=== PATIENT | female | born 1970 | race Caucasian/White ===

== ENCOUNTER 2017-07-25 19:52 | Emergency (ER) | payer BC ==
[~2017-07-25] VITALS: Ht 160 cm; Wt 84.0 kg
[~2017-07-25 19:52] MED LIST: CLX20 PO; MRLP17 PO; MXLUNK; NORT25CA PO; estrogen
[2017-07-25 19:56] VITALS: BP 116/77; PULSE 115; TEMP 37.6; O2SAT 96; Ht 160 cm; Wt 84.0 kg
[2017-07-25] MEDS ORDERED: SODIUM CHLORIDE 0.9% 1000ML 1,000 ML IV STA (20:24)
[2017-07-25] MEDS ORDERED: ONDANSETRON INJ 2 MG/ML 2 ML VIAL IV STA (20:24)
[2017-07-25] MEDS ORDERED: RIZA10TA21 PO (20:31)
[2017-07-25] MEDS ORDERED: ZOLP5TAB6 PO (20:31)
[2017-07-25] MEDS ORDERED: OMEP20CA9 PO (20:31)
[2017-07-25] MEDS ORDERED: CLX/20 PO (20:31)
[2017-07-25] MEDS ORDERED: NRT/25 PO (20:31)
[2017-07-25] MEDS ORDERED: ALBUAER INH (20:31)
[2017-07-25 20:36] LABS: BASO % 0.2 %; BASO ABS # 0.04 K/uL (0-0.2); EOS ABS # 0.01 K/uL (0-0.5); HEMATOCRIT 40.9 % (37-47); HEMOGLOBIN 14.1 g/dL (12.0-16.0); IG# 0.12 K/uL (0.00-0.02); LYMPH % 9.6 %; LYMPH ABS # 2.04 K/uL (1.2-3.4); MEAN CELL VOLUME 90.7 fL (80-100); MEAN CORPUSCULAR HEMOGLOBIN 31.3 pg (25-34); MEAN CORPUSCULAR HGB CONC 34.5 g/dl (32-36); MEAN PLATELET VOLUME 9.1 fL (7.4-10.4); MONO % 6.6 %; NEUT ABS # 17.56 K/uL (1.4-6.5); PLATELET COUNT 262 K/uL (130-400); RED CELL DISTRIBUTION WIDTH SD 46.2 fL (36.4-46.3); WHITE BLOOD COUNT 21.17 K/uL (4.8-10.8)
--- NOTE | 2017-07-25 20:54 | DIAGNOSTIC IMAGING REPORT ---
ABDOMEN 2VIEW W/PA CHEST RTN CLINICAL HISTORY: eval for obstruction/pna pain COMPARISON STUDY: 06/11/2014 FINDINGS: The soft tissues, psoas shadows, renal outlines and intestinal gas pattern appear normal. There is no evidence for bowel obstruction. There is no evidence for free intraperitoneal air. No abnormal abdominal calcifications are seen. A frontal view of the chest was performed and is unremarkable. IMPRESSION: Normal study. The above report was generated using voice recognition software. It may contain grammatical, syntax or spelling errors. Electronically signed by: Ancelmo Hopson M.D. 07/25/2017 8:52 PM Dictated Date/Time: 07/25/2017 8:52 PM
[2017-07-25 20:56] LABS: ALBUMIN 3.5 gm/dl (3.4-5.0); CALCIUM 9.1 mg/dl (8.5-10.1); CREATININE 1.05 mg/dl (0.60-1.20); POTASSIUM 3.5 mmol/L (3.5-5.1)
[2017-07-25 20:59] LABS: TOTAL PROTEIN 8.6 gm/dl (6.4-8.2)
[2017-07-25] MEDS ORDERED: ONDA4TAB10 SL (21:59)
[2017-07-25] MEDS ORDERED: ONDANSETRON HOME PACK 4MG OD TAB PO ONE (22:00)
--- NOTE | 2017-07-25 23:43 | EMERGENCY ROOM VISIT NOTE ---
History Report prepared by Khoa: Luh King Under the Supervision of: Dr. Lalo Arriaga M.D. First contact with patient: 20:19 Chief Complaint: VOMITING Stated Complaint: THROWING UP Nursing Triage Summary: pt states emesis @ 0200 and continuous since. pt c/o sore glands and swollen throat w/ difficulty swallowing. History of Present Illness The patient is a 47 year old female who presents to the Emergency Room with complaints of constant vomiting beginning at 2 am, about 18 hours ago. The patient denies any abdominal pain, diarrhea, urinary symptoms, or headache. She reports some rib pain posteriorly which she states is from the vomiting. She denies any chest pain or shortness of breath. The patient's last bowel movement was yesterday. She reports its normal for her to not have a bowel movement daily. The patient states she has had a cough for the past two months. She denies any sick contact. The patient has a history of a hysterectomy. Source of History: patient Onset: 18 hours ago Position: other (generalized) Quality: other (vomiting) Timing: constant Associated Symptoms: + cough, + vomiting, + back pain, No headache, No abdominal pain, No diarrhea, No urinary symptoms Review of Systems See HPI for pertinent positives & negatives. A total of 10 systems reviewed and were otherwise negative. Past Medical & Surgical Medical Problems: (1) Esophageal Reflux (2) Hyperlipidemia Nec/Nos (3) Lumbago (4) Migraine Unspecified W/O Intractable Migraine Surgical Problems: (1) Prev Delivry W/ Or W/O Ment Antepart Cond Social History Problems: (1) Missed Family History Patient reports no known family medical history. Social History Smoking Status: Never Smoker Alcohol Use: none Marital Status: Housing Status: lives with family Occupation Status: employed Current/Historical Medications Scheduled Citalopram (Citalopram Hydrobromide), 20 MG PO HS Nortriptyline Hcl (Pamelor), 25 MG PO HS Omeprazole (Prilosec), 20 MG PO BID Ondasetron Odt (Zofran Odt), 4 MG SL Q6H Scheduled PRN Albuterol Sulfate (Proventil Hfa), 2 PUFFS INH UD PRN for SOB/Wheezing Rizatriptan Benzoate (Rizatriptan Benzoate), 10 MG PO UD PRN for Migraine Zolpidem Tartrate (Zolpidem Tartrate), 5 MG PO HS PRN for Sleep Allergies Coded Allergies: Citric Acid (Verified Allergy, Mild, FEVER BLISTERS, 10/14/11) Medroxyprogesterone (Verified Allergy, Unknown, HIVES, 08/28/16) Tetracycline (Verified Allergy, Unknown, 10/14/11) Physical Exam Vital Signs Date Time Temp Pulse Resp B/P (MAP) Pulse Ox O2 Delivery O2 Flow Rate FiO2 07/25/17 19:56 37.6 115 19 116/77 96 Room Air Physical Exam Constitutional: Vital signs reviewed. Eyes: Pupils are equal round reactive to light. Conjunctiva are noninjected. ENT: Pharynx is diffusely erythematous without exudate. Mucous membranes are dry. Neck supple without meningeal signs. Respiratory: Clear to auscultation bilaterally. Breath sounds are equal bilaterally. Cardiovascular: Regular rate and rhythm. No rubs or gallops. GI: Soft, nondistended and nontender. Bowel sounds are present. Musculoskeletal: No peripheral edema. No lower extremity tenderness. Integumentary: No cyanosis. Neurological: The patient is awake and alert. No focal deficits. Psychiatric: Normal affect. Medical Decision & Procedures ER Provider Diagnostic Interpretation: Radiology results as stated below per my review and the radiologist's interpretation: ABDOMEN 2VIEW W/PA CHEST RTN FINDINGS: The soft tissues, psoas shadows, renal outlines and intestinal gas pattern appear normal. There is no evidence for bowel obstruction. There is no evidence for free intraperitoneal air. No abnormal abdominal calcifications are seen. A frontal view of the chest was performed and is unremarkable. IMPRESSION: Normal study. The above report was generated using voice recognition software. It may contain grammatical, syntax or spelling errors. Electronically signed by: Ancelmo Hopson M.D. Laboratory Results 07/25/17 20:16 Red Blood Count 4.51, Mean Corpuscular Volume 90.7, Mean Corpuscular Hemoglobin 31.3, Mean Corpuscular Hemoglobin Concent 34.5, Mean Platelet Volume 9.1, Neutrophils (%) (Auto) 83.0, Lymphocytes (%) (Auto) 9.6, Monocytes (%) (Auto) 6.6, Eosinophils (%) (Auto) 0.0, Basophils (%) (Auto) 0.2, Neutrophils # (Auto) 17.56, Lymphocytes # (Auto) 2.04, Monocytes # (Auto) 1.40, Eosinophils # (Auto) 0.01, Basophils # (Auto) 0.04 07/25/17 20:16 Test 07/25/17 20:16 07/25/17 21:15 White Blood Count 21.17 K/uL (4.8-10.8) Red Blood Count 4.51 M/uL (4.2-5.4) Hemoglobin 14.1 g/dL (12.0-16.0) Hematocrit 40.9 % (37-47) Mean Corpuscular Volume 90.7 fL (80-100) Mean Corpuscular Hemoglobin 31.3 pg (25-34) Mean Corpuscular Hemoglobin Concent 34.5 g/dl (32-36) Platelet Count 262 K/uL (130-400) Mean Platelet Volume 9.1 fL (7.4-10.4) Neutrophils (%) (Auto) 83.0 % Lymphocytes (%) (Auto) 9.6 % Monocytes (%) (Auto) 6.6 % Eosinophils (%) (Auto) 0.0 % Basophils (%) (Auto) 0.2 % Neutrophils # (Auto) 17.56 K/uL (1.4-6.5) Lymphocytes # (Auto) 2.04 K/uL (1.2-3.4) Monocytes # (Auto) 1.40 K/uL (0.11-0.59) Eosinophils # (Auto) 0.01 K/uL (0-0.5) Basophils # (Auto) 0.04 K/uL (0-0.2) RDW Standard Deviation 46.2 fL (36.4-46.3) RDW Coefficient of Variation 14.0 % (11.5-14.5) Immature Granulocyte % (Auto) 0.6 % Immature Granulocyte # (Auto) 0.12 K/uL (0.00-0.02) Anion Gap 9.0 mmol/L (3-11) Est Creatinine Clear Calc Drug Dose 67.3 ml/min Estimated GFR () 72.7 Estimated GFR (Non- 62.8 BUN/Creatinine Ratio 11.3 (10-20) Calcium Level 9.1 mg/dl (8.5-10.1) Total Bilirubin 0.6 mg/dl (0.2-1) Direct Bilirubin 0.1 mg/dl (0-0.2) Aspartate Amino Transf (AST/SGOT) 12 U/L (15-37) Alanine Aminotransferase (ALT/SGPT) 22 U/L (12-78) Alkaline Phosphatase 125 U/L (45-117) Total Protein 8.6 gm/dl (6.4-8.2) Albumin 3.5 gm/dl (3.4-5.0) Lipase 73 U/L (73-393) Monoscreen NEG (NEG) Urine Color YELLOW Urine Appearance CLEAR (CLEAR) Urine pH 6.0 (4.5-7.5) Urine Specific [place] 1.008 (1.000-1.030) Urine Protein NEG (NEG) Urine Glucose (UA) NEG (NEG) Urine Ketones NEG (NEG) Urine Occult Blood NEG (NEG) Urine Nitrite NEG (NEG) Urine Bilirubin NEG (NEG) Urine Urobilinogen NEG (NEG) Urine Leukocyte Esterase TRACE (NEG) Urine WBC (Auto) 1-5 /hpf (0-5) Urine RBC (Auto) 0-4 /hpf (0-4) Urine Hyaline Casts (Auto) 0 /lpf (0-5) Urine Epithelial Cells (Auto) 10-20 /lpf (0-5) Urine Bacteria (Auto) 1+ (NEG) Laboratory results as reviewed by me. Medications Administered Medications (Trade) Dose Ordered Sig/Tata Route Start Time Stop Time Status Last Admin Dose Admin Sodium Chloride 1,000 ml @ 999 mls/hr Q1H1M STAT IV 07/25/17 20:24 07/25/17 21:24 DC 07/25/17 20:24 999 MLS/HR Ondansetron HCl (Zofran Inj) 4 mg NOW STAT IV 07/25/17 20:24 07/25/17 20:27 DC 07/25/17 20:30 4 MG Ondansetron HCl (ZOFRAN ODT 4MG Home Pack) 1 homepack UD ONCE PO 07/25/17 22:00 07/25/17 22:01 DC 07/25/17 22:08 1 HOMEPACK ED Course 2020: The patient was evaluated in room C11B. A complete history and physical exam was performed. 2023: Ordered Zofran Inj 4 mg IV, Sodium Chloride 1000 ml @ 999 mls/hr IV. 2102: On reassessment, the patient is no longer nauseous. 2148: The patient is feeling better. I discussed test results and reviewed return instructions with the patient. The patient was able to drink without difficulty. 2199: Ordered Ondansetron HCl 1 homepack PO. 2204: Upon reevaluation, the patient appeared to have improvement of her symptoms. I discussed tonight's findings with the patient. She verbalized agreement of the treatment plan. The patient was discharged home. Medical Decision This is a 47-year-old female presents with vomiting, cough and rib pain. Differential diagnosis includes gastritis, foodborne illness, dehydration, electrolyte abnormality, obstruction, pneumonia. I did perform a limited focused review of portions of the patient's old chart on the electronic medical record. The patient has had no recent pertinent visits to this hospital. I did evaluate the patient as noted above. IV access was established. The patient was placed on a continuous quality assurance monitor body. I did order and personally review the patient's abdominal and chest x-ray as described above. I did order and review the patient's blood work as noted in the electronic medical record. Her white count is significantly elevated but this makes be simply due to her frequent vomiting since 2 AM this morning. I did treat patient with normal saline IV. She was given Zofran IV. Rapid strep testing was negative. Monospot was also negative. On reassessment she is feeling better. She is able to drink fluids. I did discuss the test results with her. I did discuss the elevated white blood cell count with her. She is feeling better at this time and has no pain anywhere other than some minor rib pain from all the retching that she has been doing. She was therefore discharged with a prescription for Zofran and I did discuss return instructions with her as well as the need for close follow up. Medication Reconcilliation Current Medication List: was personally reviewed by me Blood Pressure Screening Patient's blood pressure: Normal blood pressure Impression Primary Impression: Vomiting Additional Impressions: Leukocytosis Sore throat Scribe Attestation The scribe's documentation has been prepared under my direct and personally reviewed by me in its entirety. I confirm that the note above accurately reflects all work, treatment, procedures, and medical decision making performed by me. Departure Information Dispostion Home / Self-Care Prescriptions Ondasetron Odt (ZOFRAN ODT) 4 Mg Tab 4 MG SL Q6H for Nausea, #6 TAB Prov: Lalo Arriaga M.D. 07/25/17 Referrals Bernabe Beltran M.D. (PCP) Forms HOME CARE DOCUMENTATION FORM, IMPORTANT VISIT INFORMATION Patient Instructions ED Nausea Vomiting, My [facility] Additional Instructions You have been examined and treated today on an emergency basis only. This is not a substitute for, or an effort to provide, complete comprehensive medical care. It is impossible to recognize and treat all injuries or illnesses in a single emergency department visit. It is therefore important that you follow up closely with your physician. Call as soon as possible for an appointment. Return for worsening symptoms or if you develop fever, abdominal pain, headache , or any other concerning symptoms. Problem Qualifiers Primary Impression: Vomiting Vomiting type: unspecified Vomiting Intractability: non-intractable Nausea presence: with nausea Qualified Codes: R11.2 - Nausea with vomiting, unspecified Additional Impressions: Leukocytosis Leukocytosis type: unspecified Qualified Codes: D72.829 - Elevated white blood cell count, unspecified
== END 2017-07-25 22:16 | disposition home or self-care (01) ==
LOC: C.EDB 19:53 → C.EDC 22:16
DX: R11.2 Nausea with vomiting, unspecified (principal); D72.829 Elevated white blood cell count, unspecified; J02.9 Acute pharyngitis, unspecified; K21.9 Gastro-esophageal reflux disease without esophagitis; E78.5 Hyperlipidemia, unspecified; M54.5 Low back pain; G43.909 Migraine, unspecified, not intractable, without status migrainosus; Z79.899 Other long term (current) drug therapy

== ENCOUNTER 2017-08-06 07:21 | Observation (INO) | payer BC, OTHER ==
[~2017-08-06] VITALS: Ht 160 cm; Wt 84.0 kg
[~2017-08-06 07:21] MED LIST changes: +ALBUAER INH; +CLX/20 PO; -CLX20 PO; -MRLP17 PO; -MXLUNK; -NORT25CA PO; +NRT/25 PO; +OMEP20CA9 PO; +ONDA4TAB10 SL; +RIZA10TA21 PO; +ZOLP5TAB6 PO; -estrogen
[2017-08-06] MEDS ORDERED: ONDANSETRON INJ 2 MG/ML 2 ML VIAL IV STA (07:29)
[2017-08-06] MEDS ORDERED: SODIUM CHLORIDE 0.9% 1000ML 1,000 ML IV STA (07:29)
[2017-08-06 07:59] LABS: HEMATOCRIT 37.9 % (37-47); HEMOGLOBIN 13.2 g/dL (12.0-16.0); MEAN CELL VOLUME 89.8 fL (80-100); MEAN CORPUSCULAR HEMOGLOBIN 31.3 pg (25-34); MEAN CORPUSCULAR HGB CONC 34.8 g/dl (32-36); MEAN PLATELET VOLUME 8.8 fL (7.4-10.4); PLATELET COUNT 301 K/uL (130-400); RED CELL DISTRIBUTION WIDTH CV 13.6 % (11.5-14.5); RED CELL DISTRIBUTION WIDTH SD 44.9 fL (36.4-46.3)
[2017-08-06 08:16] LABS: ALBUMIN 3.3 gm/dl (3.4-5.0); BLOOD UREA NITROGEN 19 mg/dl (7-18); CALCIUM 8.8 mg/dl (8.5-10.1); CARBON DIOXIDE 19 mmol/L (21-32); CREATININE 1.04 mg/dl (0.60-1.20); GLUCOSE 152 mg/dl (70-99); LIPASE 67 U/L (73-393); POTASSIUM 3.4 mmol/L (3.5-5.1); SODIUM 138 mmol/L (136-145)
[2017-08-06 08:19] LABS: ALKALINE PHOSPHATASE 110 U/L (45-117); ALT/SGPT 25 U/L (12-78); AST/SGOT 16 U/L (15-37); TOTAL PROTEIN 8.2 gm/dl (6.4-8.2)
[2017-08-06 08:22] LABS: BASO % 0.1 %; BASO ABS # 0.03 K/uL (0-0.2); IG# 0.09 K/uL (0.00-0.02); LYMPH ABS # 1.05 K/uL (1.2-3.4); MONO % 3.8 %; NEUT % 90.7 %; NEUT ABS # 19.23 K/uL (1.4-6.5)
--- NOTE | 2017-08-06 08:35 | EMERGENCY ROOM VISIT NOTE ---
History First contact with patient: 07:26 Chief Complaint: VOMITING Stated Complaint: THROWING UP ALL NIGHT Nursing Triage Summary: n/v since 9 pm last night with diarrhea abd pain last night but not now just recently finished ABX for strep History of Present Illness The patient is a 47 year old female who presents to the Emergency Room with complaints of nausea vomiting and diarrhea that started at 9 PM last night. The patient states she has not been able to keep anything down. The patient states she had a little abdominal pain last light but that has resolved. The patient states that she just finished antibiotics for strep throat yesterday. The patient denies any sore throat or any upper respiratory symptoms. The patient denies any chest pain or shortness of breath. Patient denies any urinary symptoms. She admits she tried Zofran tablets that she had at home from similar episode last month without any results. Review of Systems 10 system review was performed and was negative unless stated otherwise history of present illness. Past Medical/Surgical History Medical Problems: (1) Esophageal Reflux (2) Hyperlipidemia Nec/Nos (3) Lumbago (4) Migraine Unspecified W/O Intractable Migraine Surgical Problems: (1) Prev Delivry W/ Or W/O Ment Antepart Cond Social History Problems: (1) Missed Family History Patient reports no known family medical history. Social History Smoking Status: Never Smoker Alcohol Use: none Marital Status: Housing Status: lives with family Occupation Status: employed Current/Historical Medications Scheduled Citalopram (Citalopram Hydrobromide), 20 MG PO HS Nortriptyline Hcl (Pamelor), 25 MG PO HS Omeprazole (Prilosec), 20 MG PO BID Ondasetron Odt (Zofran Odt), 4 MG SL Q6H Scheduled PRN Albuterol Sulfate (Proventil Hfa), 2 PUFFS INH UD PRN for SOB/Wheezing Rizatriptan Benzoate (Rizatriptan Benzoate), 10 MG PO UD PRN for Migraine Zolpidem Tartrate (Zolpidem Tartrate), 5 MG PO HS PRN for Sleep Physical Exam Vital Signs Date Time Temp Pulse Resp B/P (MAP) Pulse Ox O2 Delivery O2 Flow Rate FiO2 08/06/17 09:02 36.6 94 18 118/71 96 08/06/17 07:25 36.6 101 16 148/73 97 Physical Exam GENERAL: 47-year-old white female appears in no acute distress. MENTAL Status: Alert and oriented 3. MOUTH: Mucosa is slightly dry. NECK: Supple, no lymphadenopathy noted. No carotid bruits noted. LUNGS: Clear auscultation without wheezes rales or rhonchi. CARDIAC: Regular rate and rhythm without murmur. Pulses is full and equal throughout. BACK: No CVA tenderness noted. ABDOMEN: Positive bowel sounds all 4 quadrants. Soft, nontender to palpation without organomegaly or masses. EXTREMITIES: No cyanosis or edema noted. Medical Decision & Procedures Laboratory Results 08/06/17 07:45 Red Blood Count 4.22, Mean Corpuscular Volume 89.8, Mean Corpuscular Hemoglobin 31.3, Mean Corpuscular Hemoglobin Concent 34.8, Mean Platelet Volume 8.8, Neutrophils (%) (Auto) 90.7, Lymphocytes (%) (Auto) 5.0, Monocytes (%) (Auto) 3.8, Eosinophils (%) (Auto) 0.0, Basophils (%) (Auto) 0.1, Neutrophils # (Auto) 19.23, Lymphocytes # (Auto) 1.05, Monocytes # (Auto) 0.80, Eosinophils # (Auto) 0.00, Basophils # (Auto) 0.03 08/06/17 07:45 Test 08/06/17 07:45 White Blood Count 21.20 K/uL (4.8-10.8) Red Blood Count 4.22 M/uL (4.2-5.4) Hemoglobin 13.2 g/dL (12.0-16.0) Hematocrit 37.9 % (37-47) Mean Corpuscular Volume 89.8 fL (80-100) Mean Corpuscular Hemoglobin 31.3 pg (25-34) Mean Corpuscular Hemoglobin Concent 34.8 g/dl (32-36) Platelet Count 301 K/uL (130-400) Mean Platelet Volume 8.8 fL (7.4-10.4) Neutrophils (%) (Auto) 90.7 % Lymphocytes (%) (Auto) 5.0 % Monocytes (%) (Auto) 3.8 % Eosinophils (%) (Auto) 0.0 % Basophils (%) (Auto) 0.1 % Neutrophils # (Auto) 19.23 K/uL (1.4-6.5) Lymphocytes # (Auto) 1.05 K/uL (1.2-3.4) Monocytes # (Auto) 0.80 K/uL (0.11-0.59) Eosinophils # (Auto) 0.00 K/uL (0-0.5) Basophils # (Auto) 0.03 K/uL (0-0.2) RDW Standard Deviation 44.9 fL (36.4-46.3) RDW Coefficient of Variation 13.6 % (11.5-14.5) Immature Granulocyte % (Auto) 0.4 % Immature Granulocyte # (Auto) 0.09 K/uL (0.00-0.02) Anion Gap 12.0 mmol/L (3-11) Est Creatinine Clear Calc Drug Dose 67.9 ml/min Estimated GFR () 73.6 Estimated GFR (Non- 63.5 BUN/Creatinine Ratio 17.9 (10-20) Calcium Level 8.8 mg/dl (8.5-10.1) Total Bilirubin 0.3 mg/dl (0.2-1) Direct Bilirubin < 0.1 mg/dl (0-0.2) Aspartate Amino Transf (AST/SGOT) 16 U/L (15-37) Alanine Aminotransferase (ALT/SGPT) 25 U/L (12-78) Alkaline Phosphatase 110 U/L (45-117) Total Protein 8.2 gm/dl (6.4-8.2) Albumin 3.3 gm/dl (3.4-5.0) Lipase 67 U/L (73-393) Medications Administered Medications (Trade) Dose Ordered Sig/Tata Route Start Time Stop Time Status Last Admin Dose Admin Sodium Chloride 1,000 ml @ 999 mls/hr Q1H1M STAT IV 08/06/17 07:29 08/06/17 08:29 DC 08/06/17 07:49 999 MLS/HR Ondansetron HCl (Zofran Inj) 4 mg NOW STAT IV 08/06/17 07:29 08/06/17 07:31 DC 08/06/17 07:49 4 MG Ondansetron HCl (Zofran Odt) 4 mg ONE ONCE PO 08/06/17 10:00 08/06/17 10:01 DC 1/12/18 10:00 4 MG ED Course The patient was evaluated. The patient's EMR medication list were reviewed. IV access was obtained. The patient was given 1 L normal saline wide-open. She is also given Zofran 4 mg IV push for nausea. CBC and differential, renal profile, LFTs and lipase levels were ordered. Labs were reviewed. White count was elevated at 21,000 otherwise labs are unremarkable. When the patient was here with similar symptoms in June her white count was similar. The patient was reevaluated on several occasions and was feeling much better. She was then given crackers and irving twin and was able to keep both of them down without any difficulty. The patient's case was discussed with Dr. Owen who agreed with treatment plan. The patient was put up for discharge. The patient wanted to go into the bathroom before she left. When she went to urinate she started feeling nauseous again and had diarrhea and vomiting once again. She was given Zofran and still was unable to control her vomiting. Hospitalist was consulted for admission. Medical Decision Differential diagnosis include small bowel obstruction, gastroenteritis, [place] Drug Monitoring Program Search Results: patient reviewed within database Medication Reconcilliation Current Medication List: was personally reviewed by me Blood Pressure Screening Patient's blood pressure: Elevated blood pressure Blood pressure disposition: Elevated BP felt to be situational Impression Primary Impression: Intractable vomiting with nausea Departure Information Dispostion Being Evaluated By Hospitalist Condition GOOD Referrals Bernabe Beltran M.D. (PCP) Forms HOME CARE DOCUMENTATION FORM, IMPORTANT VISIT INFORMATION Patient Instructions ED Diet Brooks, ED Nausea Vomiting, [facility] Problem Qualifiers Primary Impression: Intractable vomiting with nausea Vomiting type: unspecified Qualified Codes: R11.2 - Nausea with vomiting, unspecified
[2017-08-06] MEDS ORDERED: ONDANSETRON 4MG OD TAB PO ONE (10:00)
[2017-08-06] MEDS ORDERED: ZOLPIDEM TARTRATE 5 MG TAB PO PRN (12:00)
[2017-08-06] MEDS ORDERED: MAGNESIUM HYDROXIDE SUSP 30 ML UDC PO PRN (12:00)
[2017-08-06] MEDS ORDERED: ALBUTEROL HFA 8 GM INHALER INH PRN (12:00)
[2017-08-06] MEDS ORDERED: ONDANSETRON INJ 2 MG/ML 2 ML VIAL IV PRN (12:00)
[2017-08-06] MEDS ORDERED: RIZATRIPTAN BENZOATE 10 MG TAB PO PRN (12:00)
--- NOTE | 2017-08-06 12:09 | History and Physical ---
History & Physical Date & Time of Service: Aug 06, 2017 at 11:58 Chief Complaint: Throwing Up All Night Primary Care Physician: Bernabe Beltran M.D. History of Present Illness Source: patient 47 y/o F c/o n/v/d. Pt was seen in the ED on 07/25/17 for n/v. She had a rapid strep that was neg, however pt was notified on 07/27 that her cx was +. She was started on amoxicillin at that time. She has felt improved overall and had been eating and drinking without issue. She felt constipated last night and asked her to go the store to buy her a fleets enema. She took this around 9pm. Shortly after, pt started to have n/v. She then started to have diarrhea around 3am. She continued to have n/v/d so she came the the ED. She was given zofran and IVF and was doing well. She was set for d/c home at that time. She ambulated to the bathroom to urinate and had a sudden return of n/v/ d and has now had continued nausea. She does not feel well enough to go home as she cannot keep anything down. She has not had fever or abd pain. Pt denies SOB, chest pain, LE pain or swelling, urinary sx. Her contracted strep, but no one else at home is sick. No unusual foods or travel. Pt does state that her usual bowel pattern is 3 days between bowel movements. Past Medical/Surgical History GERD Migraines Depression Insomnia Family History Family history was reviewed; no changes noted. Social History Smoking Status: Never Smoker Alcohol Use: none Drug Use: none Marital Status: Occupational Status: employed Immunizations History of Influenza Vaccine: No History of Tetanus Vaccine?: No History of Pneumococcal: No History of Hepatitis B Vaccine: 2002 Multi-Drug Resistant Organisms History of MDRO: No Allergies Coded Allergies: Citric Acid (Verified Allergy, Mild, FEVER BLISTERS, 08/06/17) Medroxyprogesterone (Verified Allergy, Unknown, HIVES, 08/06/17) Tetracycline (Verified Allergy, Unknown, 08/06/17) Home Medications Scheduled Citalopram (Citalopram Hydrobromide), 20 MG PO HS Nortriptyline Hcl (Pamelor), 25 MG PO HS Omeprazole (Prilosec), 20 MG PO BID Ondasetron Odt (Zofran Odt), 4 MG SL Q6H Scheduled PRN Albuterol Sulfate (Proventil Hfa), 2 PUFFS INH UD PRN for SOB/Wheezing Rizatriptan Benzoate (Rizatriptan Benzoate), 10 MG PO UD PRN for Migraine Zolpidem Tartrate (Zolpidem Tartrate), 5 MG PO HS PRN for Sleep Review of Systems Pertinent positives and negatives reviewed in HPI--all others negative Physical Exam Vital Signs Date Time Temp Pulse Resp B/P (MAP) Pulse Ox O2 Delivery O2 Flow Rate FiO2 08/06/17 11:27 84 20 142/81 97 Room Air 08/06/17 09:02 36.6 94 18 118/71 96 08/06/17 07:25 36.6 101 16 148/73 97 General Appearance: no apparent distress (ill appearing), + obese Head: normocephalic, atraumatic Eyes: normal inspection, EOMI, sclerae normal Respiratory/Chest: normal breath sounds, no respiratory distress Cardiovascular: regular rate, rhythm, no edema Abdomen/GI: non tender, soft Extremities/Musculoskelatal: no calf tenderness, no pedal edema Neurologic/Psych: alert, normal mood/affect, oriented x 3 Skin: normal color, warm/dry Diagnostics Laboratory Results Results Past 24 Hours Test 08/06/17 07:45 Range/Units White Blood Count 21.20 4.8-10.8 K/uL Red Blood Count 4.22 4.2-5.4 M/uL Hemoglobin 13.2 12.0-16.0 g/dL Hematocrit 37.9 37-47 % Mean Corpuscular Volume 89.8 80-100 fL Mean Corpuscular Hemoglobin 31.3 25-34 pg Mean Corpuscular Hemoglobin Concent 34.8 32-36 g/dl Platelet Count 301 130-400 K/uL Mean Platelet Volume 8.8 7.4-10.4 fL Neutrophils (%) (Auto) 90.7 % Lymphocytes (%) (Auto) 5.0 % Monocytes (%) (Auto) 3.8 % Eosinophils (%) (Auto) 0.0 % Basophils (%) (Auto) 0.1 % Neutrophils # (Auto) 19.23 1.4-6.5 K/uL Lymphocytes # (Auto) 1.05 1.2-3.4 K/uL Monocytes # (Auto) 0.80 0.11-0.59 K/uL Eosinophils # (Auto) 0.00 0-0.5 K/uL Basophils # (Auto) 0.03 0-0.2 K/uL RDW Standard Deviation 44.9 36.4-46.3 fL RDW Coefficient of Variation 13.6 11.5-14.5 % Immature Granulocyte % (Auto) 0.4 % Immature Granulocyte # (Auto) 0.09 0.00-0.02 K/uL Sodium Level 138 136-145 mmol/L Potassium Level 3.4 3.5-5.1 mmol/L Chloride Level 107 98-107 mmol/L Carbon Dioxide Level 19 21-32 mmol/L Anion Gap 12.0 3-11 mmol/L Blood Urea Nitrogen 19 7-18 mg/dl Creatinine 1.04 0.60-1.20 mg/dl Est Creatinine Clear Calc Drug Dose 67.9 ml/min Estimated GFR () 73.6 Estimated GFR (Non- 63.5 BUN/Creatinine Ratio 17.9 10-20 Random Glucose 152 70-99 mg/dl Calcium Level 8.8 8.5-10.1 mg/dl Total Bilirubin 0.3 0.2-1 mg/dl Direct Bilirubin < 0.1 0-0.2 mg/dl Aspartate Amino Transf (AST/SGOT) 16 15-37 U/L Alanine Aminotransferase (ALT/SGPT) 25 12-78 U/L Alkaline Phosphatase 110 45-117 U/L Total Protein 8.2 6.4-8.2 gm/dl Albumin 3.3 3.4-5.0 gm/dl Lipase 67 73-393 U/L Impression Assessment and Plan 47 y/o F who was admitted on 08/06 for observation for n/v/d N/V/D: likely viral given sudden onset and comes in waves Elevated WBC that is stable from 07/25 and possibly related to recent strep vs acute stress rxn CXR on 07/25 neg, will hold on repeat for now UA and blood cx pending Finished course of amoxicillin 08/05 HS, will hold on further abx for now unless WBC becomes more elevated IVF, zofran Probiotic Diarrhea likely related to fleets use given constipation for several days prior to fleets, t/c cdiff if worsening HypoK: likely related to v/d Replace and monitor GERD: continue home meds Migraines: continue home meds Depression: continue home meds Insomnia: continue home meds Other: Clears with IVF Ambulation for DVT proph given likely short duration and stay VTE Prophylaxis VTE Risk Assessment Done? Y/N: Yes Risk Level: Low
[2017-08-06 12:27] VITALS: BP 135/80; PULSE 71; TEMP 36.7; O2SAT 97; Ht 160 cm; Wt 84.0 kg
[2017-08-06 12:38] VITALS: BP 135/80; PULSE 71; TEMP 36.7; O2SAT 97
[2017-08-06 12:48] VITALS: O2SAT 97
[2017-08-06] MEDS: ONDANSETRON 4MG OD TAB SL SCH ×3 (13:54→23:58)
[2017-08-06] MEDS ORDERED: POTASSIUM CHLR 10 MEQ / WTR 10 MEQ in PREMIXED WATER 100 ML IV SCH (14:00)
[2017-08-06] MEDS ORDERED: POTASSIUM CHLORIDE 20 MEQ TABCR PO STA (14:48)
[2017-08-06 15:00] VITALS: BP 109/73; PULSE 67; TEMP 36.8; O2SAT 95
[2017-08-06] MEDS ORDERED: IV FLUIDS COMPLETED PRN (16:45)
[2017-08-06] MEDS: LACTOBACILLUS ACIDOPHILUS (FLORANEX) TAB PO SCH (17:52)
[2017-08-06] MEDS ORDERED: NORTRIPTYLINE HCL 25 MG CAP PO SCH (21:00)
[2017-08-06] MEDS ORDERED: CITALOPRAM 20 MG TAB PO SCH (21:00)
[2017-08-06] MEDS: PANTOprazole SOD 40 MG TAB PO SCH (21:43)
[2017-08-06 22:55] VITALS: BP 115/73; PULSE 86; TEMP 37; O2SAT 96
[2017-08-07] MEDS: ACETAMINOPHEN 325 MG TAB PO PRN ×3 (02:32→13:07)
[2017-08-07] MEDS: ONDANSETRON 4MG OD TAB SL SCH ×2 (05:50→12:39)
[2017-08-07 06:03] LABS: HEMATOCRIT 36.7 % (37-47); HEMOGLOBIN 12.2 g/dL (12.0-16.0); MEAN CORPUSCULAR HEMOGLOBIN 30.6 pg (25-34); MEAN CORPUSCULAR HGB CONC 33.2 g/dl (32-36); MEAN PLATELET VOLUME 8.8 fL (7.4-10.4); PLATELET COUNT 289 K/uL (130-400); RED CELL DISTRIBUTION WIDTH CV 13.9 % (11.5-14.5); WHITE BLOOD COUNT 8.62 K/uL (4.8-10.8)
[2017-08-07 06:30] LABS: CALCIUM 8.5 mg/dl (8.5-10.1); CREATININE 0.92 mg/dl (0.60-1.20); POTASSIUM 3.6 mmol/L (3.5-5.1)
[2017-08-07 07:37] VITALS: BP 110/73; PULSE 76; TEMP 36.8; O2SAT 96
[2017-08-07] MEDS: LACTOBACILLUS ACIDOPHILUS (FLORANEX) TAB PO SCH ×2 (07:46→12:39)
[2017-08-07] MEDS: PANTOprazole SOD 40 MG TAB PO SCH (07:46)
--- NOTE | 2017-08-07 13:18 | Discharge Instructions ---
Discharge Instructions Date of Service Aug 07, 2017. Admission Reason for Admission: Intractable Vomiting With Nausea Discharge Discharge Diagnosis / Problem: nausea/vomiting - almost certainly viral gastroenteritis Discharge Goals Goal(s): Diagnostic testing, Therapeutic intervention Activity Recommendations Activity Limitations: resume your previous activity . Current Hospital Diet Patient's current hospital diet: Regular Diet Discharge Diet Recommended Diet: Regular Diet (sometimes after a stomach bug, people will have a brief period where they get diarrhea right after eating; if this is the case, simplify to a "B.R.A.T." diet - bishop/rice/applesauce/toast for a day or two - these are easy to digest, then if the diarrhea clears you can try again. this isn't likely to happen, but moving to a BR[facility] usually solves the problem if it does) Pending Studies Studies pending at discharge: no List of pending studies: technically the blood cultures they joy when you first came in will "cook" in the micro lab for another several days, but we do not expect any growth/any findings Medical Emergencies . Who to Call and When: Medical Emergencies: If at any time you feel your situation is an emergency, please call 911 immediately. . Non-Emergent Contact Non-Emergency issues call your: Primary Care Provider . . "Provider Documentation" section prepared by Ruel Alexander. . VTE Core Measure Inpt VTE Proph given/why not?: Treatment not indicated
[2017-08-07 13:41] VITALS: BP 110/73; PULSE 76; TEMP 36.8; O2SAT 96
--- NOTE | 2017-08-07 18:32 | Discharge Summary ---
Discharge Summary Date of Service Aug 07, 2017. Discharge Summary Admission Date: Aug 06, 2017 at 11:57 Discharge Date: Aug 07, 2017 Discharge Disposition: Home Principal Diagnosis: viral gastroenteritis Immunizations: Have You Had Influenza Vaccine: No History of Tetanus Vaccine?: No History of Pneumococcal: No History of Hepatitis B Vaccine: 2002 Medication Reconciliation Continued Medications: Albuterol Sulfate (Proventil Hfa) 108 Mcg/Act Aer 2 PUFFS INH UD PRN for SOB/Wheezing Citalopram (Citalopram Hydrobromide) 20 Mg Tab 20 MG PO HS Nortriptyline Hcl (Pamelor) 25 Mg Cap 25 MG PO HS Omeprazole (Prilosec) 20 Mg Cap 20 MG PO BID Ondasetron Odt (Zofran Odt) 4 Mg Tab 4 MG SL Q6H for Nausea, #6 TAB Rizatriptan Benzoate (Rizatriptan Benzoate) 10 Mg Tab 10 MG PO UD PRN for Migraine Zolpidem Tartrate (Zolpidem Tartrate) 5 Mg Tab 5 MG PO HS PRN for Sleep Discharge Exam Physical Exam: General Appearance: no apparent distress Eyes: EOMI ENT: hearing grossly normal Neck: trachea midline Respiratory/Chest: no respiratory distress, no accessory muscle use 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 discussed infection prevention strategies for the rest of the family leukocytosis - almost certainly demargination with above situation and quick resolution HypoK: likely related to v/d replaced GERD: continue home meds Migraines: continue home meds Depression: continue home meds Insomnia: continue home meds Total Time Spent: Less than 30 minutes This includes examination of the patient, discharge planning, medication reconciliation, and communication with other providers. Discharge Instructions Please refer to the electronic Patient Visit Report (Discharge Instructions) for additional information. Additional Copies To Bernabe Beltran M.D.
== END 2017-08-07 14:06 | disposition home or self-care (01) ==
LOC: C.EDB 07:22 → C.MSN 11:57 → ENRESERV 12:07
PROVIDERS: ADMIT Family Medicine; ATTEND Family Medicine
DX: A08.4 Viral intestinal infection, unspecified (principal); D72.829 Elevated white blood cell count, unspecified; E87.6 Hypokalemia; F32.9 Major depressive disorder, single episode, unspecified; K21.9 Gastro-esophageal reflux disease without esophagitis; G43.909 Migraine, unspecified, not intractable, without status migrainosus; G47.00 Insomnia, unspecified; E78.5 Hyperlipidemia, unspecified; Z79.899 Other long term (current) drug therapy